=== PATIENT | male | born 1935 | race Two or more races ===

== ENCOUNTER 2021-06-23 00:54 | Inpatient (IN) | payer OTHER ==
[~2021-06-23] VITALS: Ht 172.7 cm; Wt 77.6 kg
[2021-06-23] VITALS: BP 141/63
--- NOTE | 2021-06-23 01:06 | NUR ---
BIBRA FROM HOME C/O MIDEPIGASTRIC PAIN S/P BM @ 630PM. +N/V -DIARRHEA TOOK OMEPRAZOLE TOBACCO WAREHOUSE AGENT. PT ALERT AND ORIENTED X3. BROUGHT IN BY STRETCHER ON MONITOR AND POX IN A GOWN.
--- NOTE | 2021-06-23 01:20 | NUR ---
LAB AT BEDSIDE
[2021-06-23] MEDS ORDERED: ONDANSETRON HCL/PF 4 MG/2 ML VIAL ONE ×2 (01:22→03:27)
[2021-06-23] MEDS ORDERED: MORPHINE SULFATE INJ 2 MG/ML DISP.SYRIN ONE ×2 (01:23→03:27)
[2021-06-23] MEDS ORDERED: ONDANSETRON HCL/PF 4 MG/2 ML VIAL IVP ONE (01:30)
[2021-06-23] MEDS ORDERED: IV NS 0.9% 500 ML BAG IV ONE (01:30)
[2021-06-23] MEDS ORDERED: MORPHINE SULFATE INJ 2 MG/ML DISP.SYRIN IV ONE ×2 (01:30→03:30)
[2021-06-23] MEDS ORDERED: LIDOCAINE 2% JEL UROJET 10 ML MM ONE (01:48)
--- NOTE | 2021-06-23 01:58 | NUR ---
URINE COLLECTED SENT TO LAB
[2021-06-23 02:00] LABS: HEMATOCRIT 39 % (39-51); HEMOGLOBIN 13.6 g/dL (13.5-17.5); LYMPHOCYTES % (AUTO) 14.9 % (20.0-44.0); MEAN CORPUSCULAR HGB CONC 35 g/dl (31.0-36.0); MEAN CORPUSCULAR VOLUME 87 fL (80-96); NEUTROPHILS % (AUTO) 79.1 % (43.0-81.0); PLATELET COUNT (AUTO) 244 K/uL (150-450); RED BLOOD CELL COUNT(AUTO) 4.49 MIL/uL (4.5-6.0)
[2021-06-23 02:01] LABS: BASOPHILS % (AUTO) 0.3 % (0.0-2.0); EOSINOPHILS % (AUTO) 0.3 % (0.0-6.0); LYMPHOCYTES # (AUTO) 2.1 K/uL (0.8-4.8); MONOCYTES # (AUTO) 0.8 K/uL (0.1-1.30); MONOCYTES % (AUTO) 5.4 % (2.0-12.0)
[2021-06-23 02:11] LABS: CALCIUM, SERUM 9.2 mg/dL (8.5-10.1); CARBON DIOXIDE 26 mmol/L (21-32); CHLORIDE 93 mmol/L (98-107); CREATININE 1.6 mg/dL (0.6-1.3); GLUCOSE 176 mg/dL (74-106); POTASSIUM 4.4 mmol/L (3.5-5.1); SODIUM SERUM 129 mmol/L (136-145); UREA NITROGEN, BLOOD 27 mg/dL (7-18)
--- NOTE | 2021-06-23 02:18 | NUR ---
PT RETURNED TO ER BED [address]
[2021-06-23 02:19] LABS: ALANINE AMINOTRANSFERASE 17 U/L (12-78); ALBUMIN 3.3 g/dL (3.4-5.0); ALKALINE PHOSPHATASE 101 U/L (46-116); ASPARTATE AMINOTRANSFERASE 14 U/L (15-37); BILIRUBIN,DIRECT 0.2 mg/dL (0.0-0.2); BILIRUBIN,TOTAL 0.4 mg/dL (0.2-1.0); LIPASE 110 U/L (73-393); TOTAL PROTEIN, SERUM 7.1 g/dL (6.4-8.2)
--- NOTE | 2021-06-23 02:19 | NUR ---
US TECH AT PT'S BEDSIDE
[2021-06-23 02:48] LABS: BILIRUBIN,URINE NEGATIVE (NEGATIVE); COLOR,URINE YELLOW (YELLOW); LEUKOCYTE ESTERASE ,URINE NEGATIVE (NEGATIVE); NITRITE, URINE NEGATIVE (NEGATIVE); PROTEIN,URINE NEGATIVE (NEGATIVE); UGLUCOSE NEGATIVE (NEGATIVE); UROBILINOGEN,URINE 0.2 EU/dL (0.2)
--- NOTE | 2021-06-23 03:14 | NUR ---
COVID ANTIGEN SWAB COLLECTED AND GIVEN TO LAB
[2021-06-23] MEDS ORDERED: ONDANSETRON HCL/PF 4 MG/2 ML VIAL IV ONE (03:30)
[2021-06-23] MEDS ORDERED: ASPIRIN 325 MG TABLET PO ONE (03:30)
[2021-06-23] MEDS ORDERED: ASPIRIN 325 MG TABLET ONE (03:40)
--- NOTE | 2021-06-23 03:55 | NUR ---
UPDATED DAUGHTER ABOUT FATHERS CONDITION
[2021-06-23] MEDS ORDERED: MAG HYDROX/AL HYDROX/SIMETH 30 ML UDC PO PRN (04:00)
[2021-06-23] MEDS ORDERED: Z GUARD REMEDY 4 OZ OINT TP PRN (04:00)
[2021-06-23] MEDS ORDERED: ACETAMINOPHEN 325 MG TABLET PO PRN (04:00)
[2021-06-23] MEDS ORDERED: ZOLPIDEM TARTRATE 5 MG TABLET PO PRN (04:00)
[2021-06-23] MEDS ORDERED: MAGNESIUM HYDROXIDE 30 ML UDC PO PRN (04:00)
--- NOTE | 2021-06-23 04:48 | NUR ---
Gaudencio da silva in [facility] - 06/23/21 at 0448 by DELLA TELE [phone]
--- NOTE | 2021-06-23 04:48 | NUR ---
TELE 324-2
--- NOTE | 2021-06-23 05:21 | NUR ---
REPORT GIVEN TO MEMO BORRERO FOR SILVANA
[2021-06-23] MEDS ORDERED: PIPERACILLIN /TAZOBACTAM 3.375 G in IV D5W 50 ML IV ONE (05:30)
--- NOTE | 2021-06-23 05:40 | NUR ---
Gaudencio da silva in ED - 06/23/21 at 0544 by NELLI PT TRANSFERRING TO 3W VIA ACLS PROTOCOL. VSS. ALL BELONGINGS WITH PT.
--- NOTE | 2021-06-23 06:13 | NUR ---
PT TRANSFERRING TO 3W VIA ACLS PROTOCOL. VSS.
--- NOTE | 2021-06-23 06:20 | NUR ---
RN NOTE PT ADMITTED TO ROOM 324-2. VSS. WILL ENDORSE TO ONCOMING NURSE FOR SILVANA.
--- NOTE | 2021-06-23 07:25 | NUR ---
RN NOTES PATIENT IS RESTING IN BED, NOT IN ACUTE DISTRESS. ON ROOM AIR, HX OF RIGHT KNEE SURGERY INVOLVING TENDONS PER PATIENT, UNABLE TO AMBULATE. URINAL AT BEDSIDE, ABLE TO USE. SAFETY MEASURES IN PLACE. WILL CONTINUE TO MONITOR.
[2021-06-23] MEDS ORDERED: AMLO-358 PO (07:50)
[2021-06-23] MEDS ORDERED: BISO5TAB20 PO (07:50)
[2021-06-23] MEDS ORDERED: PROP150T2 PO (07:50)
[2021-06-23] MEDS ORDERED: IV NS 0.9% 1,000 ML IV PRN (08:00)
[2021-06-23 08:56] LABS: THYROID STIMULATING HORMONE 1.144 uIU/mL (0.358-3.74)
[2021-06-23] MEDS: ASPIRIN 81 MG TAB.CHEW PO SCH (09:00)
[2021-06-23] MEDS: ATORVASTATIN 10 MG TABLET PO SCH (09:00)
[2021-06-23] MEDS: MORPHINE SULFATE INJ 2 MG/ML DISP.SYRIN IV PRN ×2 (09:07→12:54)
[2021-06-23] MEDS: PIPERACILLIN /TAZOBACTAM 3.375 G in IV D5W 100 ML IV SCH ×2 (09:08→18:05)
[2021-06-23] MEDS: ENOXAPARIN SODIUM 40 MG/0.4 ML DISP.SYRIN SQ SCH (09:28)
--- NOTE | 2021-06-23 10:55 | NUR ---
RN NOTES GIDEON PHANR ([phone] OR [phone]), AT BEDSIDE TO SEE THE PATIENT. PER DTR, OKAY TO GIVE INFO TO HER VINEET RIVERA WELL. INFORMED ABOUT PATIENT'S CONDITION/PROGRESS AND PLAN OF CARE FOR PATIENT.
--- NOTE | 2021-06-23 11:14 | NUR ---
RN NOTES DR. ORLANDO AT BEDSIDE TO SEE THE PATIENT.
[2021-06-23] MEDS: METOPROLOL TARTRATE 50 MG TABLET PO SCH ×3 (12:00→23:50)
[2021-06-23] MEDS ORDERED: PIPERACILLIN /TAZOBACTAM 3.375 G in IV D5W 50 ML IV SCH (12:00)
--- NOTE | 2021-06-23 15:00 | NUR ---
RN NOTES INFORMED DR. ORLANDO IF BREAKTHROUGH PAIN ANALGESIA CAN BE GIVEN TO PATIENT. PER DR. ORLANDO, DR. ARAUJO NEEDS TO SEE PATIENT FIRST AND MAKE A DECISION ON THAT.
[2021-06-23] MEDS: IV NS 0.9% 1,000 ML IV PRN (16:39)
--- NOTE | 2021-06-23 17:03 | NUR ---
RN NOTES URINE SPECIMEN COLLECTED AND PLACED IN THE REFRIGERATOR.
--- NOTE | 2021-06-23 18:05 | NUR ---
RN NOTES PATIENT NO COMPLAINT OF NAUSEA/VOMITING AT THIS TIME; ICE CHIPS OFFERED TO PATIENT BUT PATIENT VERBALIZED THAT HE'S OKAY AT THE MOMENT.
--- NOTE | 2021-06-23 19:20 | NUR ---
RN NOTES ADMITTED THIS PATIENT FROM ER W/ ADMITTING DX OF CHOLELITHIASIS, SECONDARY IMPRESSION OF NSTEMI. PATIENT IS A/O X4, MALTESE-SPEAKING, UNDERSTANDS HEBREW, ABLE TO MAKE NEEDS KNOWN. IV LINE ON LAC #18 INTACT AND PATENT, CURRENTLY ATTACHED TO NS AT 75ML/HR AND IV ATB. PATIENT UNABLE TO AMBULATE SECONDARY TO RECENT RIGHT KNEE SURGERY. BREATHING EVEN AND UNLABORED, TOLERATING ROOM AIR. CURRENTLY RESTING IN BED. SAFETY MEASURES MAINTAINED. ENDORSED TO EXECUTIVE CHAIRMAN OF THE BOARD RN FOR SILVANA.
--- NOTE | 2021-06-23 19:25 | NUR ---
DRAWER IN NOTES RECEIVED PN BED A/O X4,SPEAK JAMAICAN,UNDERSTAND GREEK,BREATHING REGULAR,NOT IN ANY FORM OF DISTRESS,O2 SAT 95% ON ROOM AIR.NPO EXCEPT ICE CHIPS,FOR GI CONSULT DUE TO CHOLELITHIASIS.PRESENT IVF NS AT 75ML./HR RATE INFUSING WELL ON LEFT AC SALINE LOCK VIA IV PUMP.CALL LIGHT IN REACH,NEEDS ANTICIPATED.
[2021-06-23 20:00] VITALS: BP 130/57
[2021-06-24] VITALS: BP 141/63
[2021-06-24 01:09] LABS: CREATININE, URINE 112.9 MG/DL (30.0-125.0)
[2021-06-24] MEDS: PIPERACILLIN /TAZOBACTAM 3.375 G in IV D5W 100 ML IV SCH ×3 (01:25→18:04)
--- NOTE | 2021-06-24 02:00 | NUR ---
E COMMERCE RETAILER NOTES DUE IV ZOSYN 3.375GM HUNG,INFUSING AT 25ML/HR RATE VIA IV PUMP ON LEFT AC SALINE LOCK.
[2021-06-24 04:00] VITALS: BP 137/56
[2021-06-24] MEDS: METOPROLOL TARTRATE 50 MG TABLET PO SCH ×4 (05:45→18:23)
[2021-06-24] MEDS: MORPHINE SULFATE INJ 2 MG/ML DISP.SYRIN IV PRN ×2 (05:57→10:31)
--- NOTE | 2021-06-24 05:57 | NUR ---
ALUMINUM CONTAINER TESTER NOTES PAIN MANAGEMENT C/O ABDOMINAL PAIN 8/10 ON PAIN SCALE,MORPHINE 1MG IV GIVEN ORDERED.
[2021-06-24 06:45] LABS: BASOPHILS % (AUTO) 0.1 % (0.0-2.0); EOSINOPHILS % (AUTO) 0.1 % (0.0-6.0); HEMATOCRIT 39 % (39-51); HEMOGLOBIN 13.5 g/dL (13.5-17.5); LYMPHOCYTES # (AUTO) 2.4 K/uL (0.8-4.8); LYMPHOCYTES % (AUTO) 8.6 % (20.0-44.0); MEAN CORPUSCULAR HGB CONC 35 g/dl (31.0-36.0); MEAN CORPUSCULAR VOLUME 88 fL (80-96); MONOCYTES # (AUTO) 1.3 K/uL (0.1-1.30); MONOCYTES % (AUTO) 4.6 % (2.0-12.0); NEUTROPHILS # (AUTO) 24.3 K/uL (1.8-8.9); NEUTROPHILS % (AUTO) 86.6 % (43.0-81.0); PLATELET COUNT (AUTO) 231 K/uL (150-450); RED BLOOD CELL COUNT(AUTO) 4.45 MIL/uL (4.5-6.0); WHITE BLOOD COUNT (AUTO) 28.1 K/uL (4.3-11.0)
--- NOTE | 2021-06-24 06:59 | NUR ---
INFORMATION RECEPTIONIST NOTES ON BED ASLEEP WITH PAIN MANAGEMENT.IVF INFUSING WELL ON LEFT AC,,KEPT NPO FOR GI CONSULT WITH DR ARAUJO.ECHO SHOWS 25-30%EF.DENIES CHEST PAIN,IN NO ACUTE DISTRESS,CALL LIGHT IN REACH,NEEDS ATTENDED.
--- NOTE | 2021-06-24 07:23 | NUR ---
PUPIL PERSONNEL SERVICES DIRECTOR OPENING NOTE PT IN BED ASLEEP, EASY TO AROUSE. A/O X4, TRISTANIAN AND LAO SPEAKING. ABLE TO MAKE NEEDS KNOWN. NO S/SX OF ACUTE DISTRESS NOTED. NO SOB. BREATHING IS EVEN AND UNLABORED; TOLERATING WELL ON ROOM AIR. PT WITH EXTERNAL AIRBRUSH ARTIST TECHNICAL WITH READING OF SINUS RHYTHM HR 86. IV ACCESS LAC#18 PATENT AND INTACT WITH NS RUNNING @100MLS/HR. SAFETY MEASURES IN PLACE WITH BED LOCKED AND AT LOW POSITION WITH SIDE RAILS UP X 2. CALL LIGHT IS WITHIN EASY REACH. WILL CONTINUE TO MONITOR PATIENT THROUGHOUT SHIFT.
[2021-06-24 08:04] VITALS: BP 138/55
[2021-06-24] MEDS: ENOXAPARIN SODIUM 40 MG/0.4 ML DISP.SYRIN SQ SCH (08:33)
[2021-06-24] MEDS: ATORVASTATIN 10 MG TABLET PO SCH (08:33)
[2021-06-24] MEDS: ASPIRIN 81 MG TAB.CHEW PO SCH (08:33)
[2021-06-24 08:41] LABS: ALANINE AMINOTRANSFERASE 16 U/L (12-78); ALBUMIN 2.8 g/dL (3.4-5.0); ALKALINE PHOSPHATASE 86 U/L (46-116); ASPARTATE AMINOTRANSFERASE 14 U/L (15-37); BILIRUBIN,TOTAL 1.1 mg/dL (0.2-1.0); CARBON DIOXIDE 27 mmol/L (21-32); CHLORIDE 93 mmol/L (98-107); CREATININE 1.5 mg/dL (0.6-1.3); GLUCOSE 104 mg/dL (74-106); LIPASE 26 U/L (73-393); MAGNESIUM 1.9 mg/dL (1.8-2.4); PHOSPHORUS 4.7 mg/dL (2.5-4.9); SODIUM SERUM 129 mmol/L (136-145); TOTAL PROTEIN, SERUM 6.9 g/dL (6.4-8.2); UREA NITROGEN, BLOOD 20 mg/dL (7-18)
[2021-06-24 12:26] VITALS: BP 150/46
[2021-06-24] MEDS ORDERED: MORPHINE SULFATE INJ 2 MG/ML DISP.SYRIN IV PRN (14:38)
--- NOTE | 2021-06-24 15:00 | NUR ---
RN NOTE-PAIN PT C/O ABDOMINAL PAIN 01/15. ADMINISTERED MORPHINE 2MG IV PRN FOR PAIN. WILL REASSESS AFTER 30 MINUTES.
--- NOTE | 2021-06-24 15:27 | NUR ---
RN NOTE PT WAS PICKED UP AT THIS TIME BY MRI.
[2021-06-24] MEDS ORDERED: ANESTHESIA TRAY IN PYXIS 1 EA TRAY MC ONE (16:47)
--- NOTE | 2021-06-24 18:49 | NUR ---
PAINT DIPPER CLOSING NOTE NO SIGNIFICANT CHANGE IN CONDITION DURING SHIFT. ABLE TO MAKE NEEDS KNOWN. NO S/SX OF ACUTE DISTRESS NOTED. NO SOB. BREATHING IS EVEN AND UNLABORED; TOLERATING WELL ON ROOM AIR. PT WITH EXTERNAL TRAFFIC CONTROL FLAGGER WITH READING OF SINUS RHYTHM HR 80S. PT IS SCHEDULED FOR PROCEDURE TMRW, WILL KEEP NPO AFTER MIDNIGHT. IV ACCESS LAC#18 PATENT AND INTACT WITH NS RUNNING @100MLS/HR. SAFETY MEASURES IN PLACE WITH BED LOCKED AND AT LOW POSITION WITH SIDE RAILS UP X 2. CALL LIGHT IS WITHIN EASY REACH. DAUGHTER IS AT BEDSIDE. WILL ENDORSE CONTINUITY OF CARE TO ONCOMING SHIFT.
[2021-06-24] MEDS: IV NS 0.9% 1,000 ML IV PRN (19:23)
--- NOTE | 2021-06-24 19:45 | NUR ---
WALL ATTENDANT NOTES LAYING COMFORTABLY ON BED,BREATHING EASY,NO SOB,FAMILY MEMBER AT BEDSIDE,PRESENT IVF INFUSING WELL VIA IV PUMP.INSTRUCTED NPO POST MIDNIGHT,GOING FOR LAP.NICKY POSSIBLE OPEN TOMORROW UNDER DR REDDY.CONSENT ON CHART.MONITOR FOR PAIN.FALL PRECAUTION OBSERVED,BED ALARM TRIGGERED,CALL LIGHT IN REACH,NEEDS ANTICIPATED.
[2021-06-24 20:00] VITALS: BP 122/58
[2021-06-25] VITALS (9 sets, daily range): BP systolic 96–137; BP diastolic 49–100
--- NOTE | 2021-06-25 | NUR ---
SALES REPRESENTATIVE UNIFORMS NOTES BP 132/100,PULSE-81,LOPRESSOR 50MG PO GIVEN SCHEDULED WITH SIPS OF WATER.
[2021-06-25] MEDS: METOPROLOL TARTRATE 50 MG TABLET PO SCH ×5 (00:06→23:11)
[2021-06-25] MEDS: PIPERACILLIN /TAZOBACTAM 3.375 G in IV D5W 100 ML IV SCH ×3 (02:17→17:09)
--- NOTE | 2021-06-25 06:00 | NUR ---
STOCKKEEPER NOTES LATEST BLOOD PRESSURE 137/60,DUE LOPRESSOR 50MG GIVEN WITH SIPS OF WATER.
--- NOTE | 2021-06-25 06:27 | NUR ---
JUNIOR UNDERWRITER NOTES LAYING COMFORTABLY ON BED,DENIES ABDOMINAL PAIN,OFFERED PAIN MEDICINE BUT REFUSED,KEPT NPO SINCE MIDNIGHT FOR LAPAROSCOPIC CHOLECYSTECTOMY,POSSIBLE OPEN AT [address] REDDY,WITH CONSENT ON CHART SIGNED BY PATIENT.IVF INFUSING WELL ON LEFT AC SALINE LOCK.IN NO ACUTE DISTRESS,CALL LIGHT IN REACH,NEEDS ATTENDED.WILL ENDORSE TO DAY NURSE FOR SILVANA.
[2021-06-25 06:52] LABS: BASOPHILS % (AUTO) 0.2 % (0.0-2.0); EOSINOPHILS % (AUTO) 0.5 % (0.0-6.0); HEMATOCRIT 36 % (39-51); HEMOGLOBIN 12.7 g/dL (13.5-17.5); LYMPHOCYTES # (AUTO) 2.3 K/uL (0.8-4.8); LYMPHOCYTES % (AUTO) 11.1 % (20.0-44.0); MEAN CORPUSCULAR HGB CONC 35 g/dl (31.0-36.0); MEAN CORPUSCULAR VOLUME 87 fL (80-96); MONOCYTES # (AUTO) 0.9 K/uL (0.1-1.30); MONOCYTES % (AUTO) 4.4 % (2.0-12.0); NEUTROPHILS # (AUTO) 17.4 K/uL (1.8-8.9); NEUTROPHILS % (AUTO) 83.8 % (43.0-81.0); PLATELET COUNT (AUTO) 198 K/uL (150-450); RED BLOOD CELL COUNT(AUTO) 4.16 MIL/uL (4.5-6.0); WHITE BLOOD COUNT (AUTO) 20.8 K/uL (4.3-11.0)
[2021-06-25 06:55] LABS: ALANINE AMINOTRANSFERASE 15 U/L (12-78); ALBUMIN 2.4 g/dL (3.4-5.0); ALKALINE PHOSPHATASE 82 U/L (46-116); ASPARTATE AMINOTRANSFERASE 14 U/L (15-37); BILIRUBIN,TOTAL 0.9 mg/dL (0.2-1.0); CARBON DIOXIDE 25 mmol/L (21-32); CHLORIDE 95 mmol/L (98-107); CREATININE 1.4 mg/dL (0.6-1.3); GLUCOSE 115 mg/dL (74-106); MAGNESIUM 1.9 mg/dL (1.8-2.4); PHOSPHORUS 3.2 mg/dL (2.5-4.9); POTASSIUM 3.8 mmol/L (3.5-5.1); SODIUM SERUM 128 mmol/L (136-145); TOTAL PROTEIN, SERUM 6.5 g/dL (6.4-8.2); UREA NITROGEN, BLOOD 22 mg/dL (7-18)
--- NOTE | 2021-06-25 07:20 | NUR ---
PSYCHOLOGIST PERSONNEL OPENING NOTES RECEIVED PATIENT SLEEPING IN BED. EASILY AROUSED. A/O X4, VERBALLY RESPONSIVE. NO SIGNS OF ACUTE DISTRESS NOTED. ON ROOM AIR, TOLERATING WELL, NO SOB NOTED, BREATHING EVEN AND UNLABORED. ON AUXILIARY POWER EQUIPMENT OPERATOR SHOWING SR @ 78. WITH IV ACCESS ON LEFT AC #18G, NS RUNNING @ 75 ML/HR. NO C/O PAIN AT THIS TIME. REMAINS ON NPO FOR SURGERY THIS NOONTIME. SAFETY MEASURES INPLACE, BED IN LOCKED LOWEST POSITION, SR UP X2, CALL LIGHT PLACED WITHIN EASY REACH. WILL CONTINUE TO MONITOR.
[2021-06-25] MEDS: ASPIRIN 81 MG TAB.CHEW PO SCH (09:00)
[2021-06-25] MEDS: ATORVASTATIN 10 MG TABLET PO SCH (09:00)
[2021-06-25] MEDS: ENOXAPARIN SODIUM 40 MG/0.4 ML DISP.SYRIN SQ SCH (09:00)
--- NOTE | 2021-06-25 09:09 | NUR ---
RN NOTES ALL MEDICATIONS HELD ON NPO STATUS AND PATIENT HAS SCHEDULED SURGERY TODAY.
[2021-06-25] MEDS ORDERED: BUPIVACAINE 0.5 % PF 150 MG/30 ML VIAL ONE (10:31)
[2021-06-25] MEDS ORDERED: BUPIVACAINE 0.25% 75 MG/30 ML VIAL ONE (10:32)
--- NOTE | 2021-06-25 11:25 | NUR ---
RN NOTES PATIENT PICKED UP VIA BED FOR SURGERY.
[2021-06-25] MEDS ORDERED: FENTANYL PF 250MCG/5ML AMPUL ONE (11:38)
[2021-06-25] MEDS ORDERED: HYDROMORPHONE INJ 2 MG/ML DISP.SYRIN ONE (11:38)
[2021-06-25] MEDS ORDERED: FAMOTIDINE/PF INJ 20 MG/2 ML VIAL IV ONE (11:39)
[2021-06-25] MEDS ORDERED: MIDAZOLAM HCL 2 MG/2ML VIAL ONE (11:39)
[2021-06-25] MEDS ORDERED: ROCURONIUM BROMIDE 50 MG/5 ML ONE (11:40)
--- NOTE | 2021-06-25 11:54 | NUR ---
RN NOTES LOPRESSOR NOT ADMINISTERED, PATIENT AT SURGERY.
[2021-06-25] MEDS ORDERED: LABETALOL HCL IV 100MG VIAL ONE (13:29)
[2021-06-25] MEDS ORDERED: hydrALAZINE HCL IV 20 MG VIAL ONE (13:29)
[2021-06-25] MEDS ORDERED: HYDROCODONE/APAP 5/325MG TABLET PO PRN (14:00)
--- NOTE | 2021-06-25 14:36 | NUR ---
RN NOTES PATIENT BACK FROM RECOVERY ROOM, TRANSPORTED VIA BED ACCOMPANIED BY ADAIR LIU. S/P LAPAROSCOPIC CHOLECYSTECTOMY WITH PLACEMENT OF DRAIN. NOTED WITH ABDOMINAL DRESSING INTACT, WITH CHRISTIAN DRAIN, NOTED WITH SANGUINEOUS DRAINAGE. NOTED WITH SOME CONFUSION, REMOVING O2 CANNULA, REORIENTED NEEDED. VITAL SIGNS FOLLOWS: 98.1, 96/52, 106, 20, 92 % SPO2 ON O2 @4 LPM VIA N/C. WILL CONTINUE TO MONITOR.
--- NOTE | 2021-06-25 18:43 | NUR ---
CONTENT COORDINATOR CLOSING NOTES PATIENT IN BED, AWAKE, ALERT, ORIENTED X4. NO SIGNS OF ACUTE DISTRESS NOTED. ON ROOM AIR SATTING @ 92%, NO C/O SOB. S/P LAP NICKY WITH CHRISTIAN DRAIN NOTED WITH SANGUINEOUS DRAIN. IV ACCESS ON LAC INTACT AND PATENT, IV ZOSYN STILL ONGOING AT THIS TIME. MEDICATED WITH NORCO 5/325 @ 1828 FOR PAIN. ALL NEEDS ATTENDED TO. SAFETY MEASURES MAINTAINED. BED IN LOWEST LOCKED POSITION, SR UP X2, CALL LIGHT PLACED WITHIN EASY REACH. WILL ENDORSE TO NEXT SHIFT.
--- NOTE | 2021-06-25 19:35 | NUR ---
DEAN OF EDUCATION OPENING RECEIVED PATIENT IN BED WITH DAUGHTER IN BED SIDE. A/OX4. NO S/S OF APPARENT DISTRESS ON ROOM AIR. DENIES PAIN AT THIS TIME. RIGHT LEG NOTED TO HAVE A BRACE-- PER DAUGHTER HE JUST HAD SX FOR IT THIS MAY. CHRISTIAN DRAIN NOTED TO HAVE SANGUINOUS DRAINAGE. TELE MONITOR READING SR 87. SAFETY IN PLACE. WILL CONTINUE WITH PLAN OF CARE FOR PATIENT.
[2021-06-25] MEDS: MORPHINE SULFATE INJ 2 MG/ML DISP.SYRIN IV PRN (21:31)
[2021-06-26] VITALS: BP 108/45
[2021-06-26] MEDS: PIPERACILLIN /TAZOBACTAM 3.375 G in IV D5W 100 ML IV SCH ×3 (01:24→17:14)
--- NOTE | 2021-06-26 02:00 | NUR ---
PAINT STOCKMAN NOTE PATIENT C/O NOT PEEING SINCE SURGERY YESTERDAY. ASSESSED PATIENT'S ABDOMEN AND IT WAS HARD AND DISTENDED ON TOP BUT SUPRAPUBIC NOT REALLY HARD NOR DISTENDED. DID DO BLADDER SCAN AND THERE WAS 0 ML FOUND, EVEN VERIFIED WITH ANOTHER RN AND MARCIA ALSO DID NOT SEE ANY RETENTION. PATIENT DID HAVE LAPAROSCOPY HENCE SUSPECTED THE HARDNESS FROM GAS. PATIENT DID STATE HE HAS HAD NOT PASSED GAS WELL. MENTIONED TO CHARGE NURSE. WILL TRY TO STAND PATIENT UP FIRST BEFORE ANY MORE INTERVENTIONS AND REASSESS AGAIN.
--- NOTE | 2021-06-26 02:00 | NUR ---
TANK CLEANER NOTE PATIENT C/O NAUSEA. GIVEN ZOFRAN 4MG. WILL REASSESS.
[2021-06-26] MEDS: ONDANSETRON HCL/PF 4 MG/2 ML VIAL IVP PRN (02:01)
[2021-06-26 04:00] VITALS: BP 111/63
--- NOTE | 2021-06-26 04:43 | NUR ---
LICENSE EXAMINER NOTE MESSAGED BIOCHEMICAL DEVELOPMENT ENGINEER MIGUEL EVANS, JOSE EDUARDO FOR IN AND OUT CATH. OK TO GIVE PER HAND ROLLER ENGRAVER. GOT 300 ML OUT WITH DARK LEESA YELLOW URINE. PER PATIENT HE DOES NOT DRINK A LOT OF WATER. PATIENT EDUCATION DONE. PATIENT ACKNOWLEDGES.
[2021-06-26] MEDS: METOPROLOL TARTRATE 50 MG TABLET PO SCH ×3 (06:19→17:21)
[2021-06-26 06:39] LABS: BASOPHILS % (AUTO) 0.1 % (0.0-2.0); EOSINOPHILS % (AUTO) 1.2 % (0.0-6.0); HEMATOCRIT 31 % (39-51); HEMOGLOBIN 10.5 g/dL (13.5-17.5); LYMPHOCYTES # (AUTO) 2.1 K/uL (0.8-4.8); LYMPHOCYTES % (AUTO) 13.2 % (20.0-44.0); MEAN CORPUSCULAR HGB CONC 34 g/dl (31.0-36.0); MEAN CORPUSCULAR VOLUME 88 fL (80-96); MONOCYTES # (AUTO) 1.1 K/uL (0.1-1.30); MONOCYTES % (AUTO) 7.3 % (2.0-12.0); NEUTROPHILS # (AUTO) 12.2 K/uL (1.8-8.9); NEUTROPHILS % (AUTO) 78.2 % (43.0-81.0); PLATELET COUNT (AUTO) 206 K/uL (150-450); RED BLOOD CELL COUNT(AUTO) 3.48 MIL/uL (4.5-6.0); WHITE BLOOD COUNT (AUTO) 15.6 K/uL (4.3-11.0)
[2021-06-26 06:56] LABS: ALANINE AMINOTRANSFERASE 38 U/L (12-78); ALBUMIN 2.1 g/dL (3.4-5.0); ALKALINE PHOSPHATASE 87 U/L (46-116); ASPARTATE AMINOTRANSFERASE 46 U/L (15-37); BILIRUBIN,TOTAL 0.6 mg/dL (0.2-1.0); CALCIUM, SERUM 7.9 mg/dL (8.5-10.1); CARBON DIOXIDE 25 mmol/L (21-32); CHLORIDE 96 mmol/L (98-107); CREATININE 1.6 mg/dL (0.6-1.3); GLUCOSE 124 mg/dL (74-106); MAGNESIUM 2.1 mg/dL (1.8-2.4); PHOSPHORUS 3.3 mg/dL (2.5-4.9); POTASSIUM 3.9 mmol/L (3.5-5.1); SODIUM SERUM 127 mmol/L (136-145); TOTAL PROTEIN, SERUM 5.7 g/dL (6.4-8.2); UREA NITROGEN, BLOOD 33 mg/dL (7-18)
--- NOTE | 2021-06-26 06:57 | NUR ---
PREFABRICATOR CLOSING NOTE PATIENT IN BED WITH EYES CLOSED, EASY TO AROUSE. A/OX4. NO S/S OF APPARENT DISTRESS. DENIES PAIN AT THE MOMENT. TELE MONITOR READING SR 86. CHRISTIAN DRAIN DRAINING SANGUINOUS DRAINAGE OUTPUT OF 60 ML. IV NS RUNNING @125ML/HR. ALL SCHEDULED MEDICATION ADMINISTERED. ALL NEEDS ATTENDED. WILL ENDORSED TO MORNING SHIFT RN FOR CONTINUITY OF CARE.
[2021-06-26 08:00] VITALS: BP 125/55
--- NOTE | 2021-06-26 08:08 | NUR ---
RN Opening Note Patient received in bed AO x 4 Luxembourgish speaking, able to responds all stimuli. Respiratory even and unlabored on room air. No distress observed. Skin is warm to touch, keep clean/dry, intact IV site. Kept elevated HOB for ensure airway/aspiration precaution and remain lower position of the bed for safety. call light within reach, will continue to monitor.
[2021-06-26] MEDS: ASPIRIN 81 MG TAB.CHEW PO SCH (08:14)
[2021-06-26] MEDS: ATORVASTATIN 10 MG TABLET PO SCH (08:14)
[2021-06-26] MEDS: ENOXAPARIN SODIUM 40 MG/0.4 ML DISP.SYRIN SQ SCH (08:15)
[2021-06-26] MEDS: LOSARTAN POTASSIUM 50 MG TABLET PO SCH (09:05)
[2021-06-26] MEDS: MORPHINE SULFATE INJ 2 MG/ML DISP.SYRIN IV PRN (11:28)
[2021-06-26 12:00] VITALS: BP 124/55
[2021-06-26] MEDS: IV NS 0.9% 1,000 ML IV PRN (15:45)
--- NOTE | 2021-06-26 15:54 | NUR ---
Patient having difficult to urinate since been after surgery and no urinate in this shift. made aware, ordered I/O cath x once. 300 cc urine out put.
[2021-06-26 16:00] VITALS: BP 127/56
--- NOTE | 2021-06-26 18:31 | NUR ---
RN Closing Note Patient is resting in bed, no distress observed. Respiratory even and unlabored on room air. Skin is warm to touch, keep clean/dry. Kept elevated HOB for ensure airway and aspiration precaution, Also lower position of the bed for safety. Remains CHRISTIAN tube and 20 cc characteristic of serosanguineous output. Call light within reach, all needs met. will endorse warehouse supervisor 3rd shift.
--- NOTE | 2021-06-26 19:38 | NUR ---
RN OPENING NOTES RECEIVED PT IN BED, ASLEEP, AWAKENS TO VERBAL STIMULI, DAUGHTER AT BEDSIDE. AOx4, ENGLISH SPEAKING AND ABLE TO MAKE NEEDS KNOWN. ON RA AND TOLERATING WELL. NO SOB NOTED. NO S/SX OF RESPIRATORY DISTRESS NOTED. IV ACCESS IN LAC #18 RUNNING NS @ 125 ML/HR. TELE MONITOR DETECTS SINUS RHYTHM WITH 2ND DEGREE AV BLOCK AND RATE OF 70. SAFETY PRECAUTIONS IN PLACE: BED IN LOWEST, LOCKED POSITION, SIDERAILS UPx2, AND BRAKES ON. TABLE AND CALL LIGHT WITHIN REACH. WILL CONTINUE TO MONITOR.
[2021-06-26 20:00] VITALS: BP 134/64
[2021-06-27] VITALS: BP 120/59
[2021-06-27] MEDS: METOPROLOL TARTRATE 50 MG TABLET PO SCH ×4 (00:12→16:48)
[2021-06-27] MEDS: ONDANSETRON HCL/PF 4 MG/2 ML VIAL IVP PRN ×2 (01:15→16:47)
[2021-06-27] MEDS: PIPERACILLIN /TAZOBACTAM 3.375 G in IV D5W 100 ML IV SCH ×3 (01:58→17:28)
[2021-06-27 04:00] VITALS: BP 141/62
--- NOTE | 2021-06-27 06:45 | NUR ---
RN CLOSING NOTES PT IN BED, ASLEEP, AWAKENS TO VERBAL STIMULI. AOx4, PERSIAN SPEAKING AND ABLE TO MAKE NEEDS KNOWN. ON RA AND TOLERATING WELL. NO SOB NOTED. NO S/SX OF RESPIRATORY DISTRESS NOTED. IV ACCESS IN R WRIST #22 G RUNNING NS @ 125 ML/HR. TELE MONITOR DETECTS SINUS RHYTHM WITH 2ND DEGREE AV BLOCK AND RATE OF 70S. ALL NEEDS MET. PT KEPT CLEAN AND DRY. SAFETY PRECAUTIONS IN PLACE: BED IN LOWEST, LOCKED POSITION, SIDERAILS UPx2, AND BRAKES ON. TABLE AND CALL LIGHT WITHIN REACH. WILL ENDORSE TO ONCOMING SHIFT FOR SILVANA.
[2021-06-27 07:28] LABS: BASOPHILS % (AUTO) 0.3 % (0.0-2.0); EOSINOPHILS % (AUTO) 2.5 % (0.0-6.0); HEMATOCRIT 33 % (39-51); LYMPHOCYTES # (AUTO) 1.8 K/uL (0.8-4.8); LYMPHOCYTES % (AUTO) 17.2 % (20.0-44.0); MEAN CORPUSCULAR HGB CONC 34 g/dl (31.0-36.0); MEAN CORPUSCULAR VOLUME 87 fL (80-96); MONOCYTES # (AUTO) 0.8 K/uL (0.1-1.30); MONOCYTES % (AUTO) 7.3 % (2.0-12.0); NEUTROPHILS # (AUTO) 7.8 K/uL (1.8-8.9); NEUTROPHILS % (AUTO) 72.7 % (43.0-81.0); PLATELET COUNT (AUTO) 218 K/uL (150-450); RED BLOOD CELL COUNT(AUTO) 3.71 MIL/uL (4.5-6.0); WHITE BLOOD COUNT (AUTO) 10.8 K/uL (4.3-11.0)
--- NOTE | 2021-06-27 07:38 | NUR ---
DATA ENTRY TECHNICIAN OPENING NOTE PT IN BED ASLEEP, EASY TO AROUSE. A/OX 4 FAROESE SPEAKING. NO S/SX OF ACUTE DISTRESS NOTED. NO C/O PAIN. BREATHING IS EVEN AND UNLABORED. ON ROOM AIR, TOLERATING WELL. PT NOTED WITH EXTERNAL SODIUM CHLORITE OPERATOR-SR 70'S WITH 1ST DEGREE BLOCK AND BBBS. PT WITH CHRISTIAN DRAIN. IV ACCESS RWRIST#22 WITH NS RUNNING @125MLS/HR. PATENT AND INTACT, FLUSHES WELL. SAFETY MEASURES IN PLACE WITH BED LOCKED AND LOW POSITION WITH SIDE RAILS UP X 2. CALL LIGHT AND BEDSIDE TABLE WITHIN REACH. WILL CONTINUE TO MONITOR PATIENT THROUGHOUT SHIFT.
[2021-06-27 08:00] VITALS: BP 152/61
[2021-06-27 08:16] LABS: ALBUMIN 2.2 g/dL (3.4-5.0); BILIRUBIN,TOTAL 0.5 mg/dL (0.2-1.0); CALCIUM, SERUM 7.3 mg/dL (8.5-10.1); CREATININE 1.2 mg/dL (0.6-1.3); MAGNESIUM 2.1 mg/dL (1.8-2.4); PHOSPHORUS 1.9 mg/dL (2.5-4.9); POTASSIUM 3.8 mmol/L (3.5-5.1); TOTAL PROTEIN, SERUM 6.1 g/dL (6.4-8.2)
[2021-06-27] MEDS: LOSARTAN POTASSIUM 50 MG TABLET PO SCH (08:16)
[2021-06-27] MEDS: ASPIRIN 81 MG TAB.CHEW PO SCH (08:16)
[2021-06-27] MEDS: ATORVASTATIN 10 MG TABLET PO SCH (08:16)
[2021-06-27] MEDS: ENOXAPARIN SODIUM 40 MG/0.4 ML DISP.SYRIN SQ SCH (08:17)
[2021-06-27] MEDS ORDERED: NEUTRA PHOS 1 POWD.PACKET PO ONE (10:00)
[2021-06-27 12:00] VITALS: BP 148/59
--- NOTE | 2021-06-27 15:45 | NUR ---
RN NOTE PHYSICAL THERAPY UNAVAILABLE. KRISTAL ANTHONY AND I HELP PT SLOWLY OUT OF BED, SIT UP AND STAND FOR FEW MINUTES. PT WAS ABLE TO TOLERATE WITHOUT C/O DIZZINESS OR PAIN. PT WAS CAREFULLY PLACED BACK IN BED. PT IS RESTING COMFORTABLY.
[2021-06-27 16:00] VITALS: BP 127/55
--- NOTE | 2021-06-27 17:43 | NUR ---
RN NOTE INSERTED IV ACCESS LAC#18G . PT TOLERATED WELL. CONSENT SIGNED FOR CTCA TMRW.
--- NOTE | 2021-06-27 18:46 | NUR ---
CORPORATE LEGAL SECRETARY CLOSING NOTE PT IN BED AWAKE. DAUGHTER AT BEDSIDE. NO S/SX OF ACUTE DISTRESS NOTED. NO C/O PAIN. BREATHING IS EVEN AND UNLABORED. ON ROOM AIR, TOLERATING WELL. PT NOTED WITH EXTERNAL CHEMICAL WASTE MANAGEMENT TECHNICIAN-SR 78 WITH 1ST DEGREE BLOCK AND BBBS. IV ACCESS RWRIST#22 AND LAC#18 PATENT AND INTACT, FLUSHING WELL. SAFETY MEASURES IN PLACE WITH BED LOCKED AND LOW POSITION WITH SIDE RAILS UP X 2. CALL LIGHT AND BEDSIDE TABLE WITHIN REACH. WILL ENDORSE CONTINUITY OF CARE TO ONCOMING SHIFT.
--- NOTE | 2021-06-27 19:30 | NUR ---
RN OPENING NOTE PATIENT IN BED, AWAKE ABLE TO MAKE NEEDS KNOWN. A/O X 4, NEPALESE SPEAKING BUT UNDERSTANDS SOME VIETNAMESE. DAUGHTER AT BEDSIDE. PATIENT IS CURRENTLY ON RA, TOLERATING WELL WITH 96% 02 SATURATION. PATIENT DOES NOT COMPLAIN OF ANY PAIN AT THIS TIME. TELE MONITOR READS SR WITH 1ST DEGREE AV BLOCK AND BBB 75 BPM. PATIENT HAS A LAC 18G, WITH ON GOING IV ABX, INFUSING WELL. PATIENT HAS A KNEE BRACE/IMMOBILIZER ON R KNEE. SAFETY MEASURES IN PLACE: BED LOCKED AND IN LOWEST POSITION, CALL LIGHT WITHIN REACH, SIDE RAILS UP. WILL MONITOR PATIENT CLOSELY.
[2021-06-27 20:00] VITALS: BP 131/63
[2021-06-28] VITALS: BP 124/53
[2021-06-28] MEDS: PIPERACILLIN /TAZOBACTAM 3.375 G in IV D5W 100 ML IV SCH ×2 (02:07→09:58)
[2021-06-28 04:00] VITALS: BP 111/35
[2021-06-28 06:00] LABS: BASOPHILS % (AUTO) 0.4 % (0.0-2.0); HEMATOCRIT 29 % (39-51); LYMPHOCYTES # (AUTO) 2.3 K/uL (0.8-4.8); LYMPHOCYTES % (AUTO) 27.1 % (20.0-44.0); MEAN CORPUSCULAR HGB CONC 35 g/dl (31.0-36.0); MEAN CORPUSCULAR VOLUME 87 fL (80-96); MONOCYTES # (AUTO) 0.9 K/uL (0.1-1.30); MONOCYTES % (AUTO) 10.5 % (2.0-12.0); NEUTROPHILS # (AUTO) 4.9 K/uL (1.8-8.9); PLATELET COUNT (AUTO) 202 K/uL (150-450); WHITE BLOOD COUNT (AUTO) 8.5 K/uL (4.3-11.0)
--- NOTE | 2021-06-28 06:41 | NUR ---
RN CLOSING NOTE PATIENT IN BED, SLEEPING, EASILY AWAKENED. ABLE TO MAKE NEEDS KNOWN. A/O X 4. PATIENT IS CURRENTLY ON RA, TOLERATING WELL WITH 97% 02 SATURATION. PATIENT DOES NOT COMPLAIN OF ANY PAIN AT THIS TIME. OFFERED PATIENT MEDICATION FOR CONSTIPATION, BUT REFUSED MED. TELE MONITOR READS SR WITH 1ST DEGREE AV BLOCK AND BBB 73 BPM. PATIENT HAS A LAC 18G, SALINE LOCKED AT THIS TIME. PATIENT HAS A KNEE BRACE/IMMOBILIZER ON R KNEE. PATIENT HAS CTCA TODAY. SAFETY MEASURES IN PLACE: BED LOCKED AND IN LOWEST POSITION, CALL LIGHT WITHIN REACH, SIDE RAILS UP. ALL NEEDS MET AND ATTENDED. ALL ORDERS CARRIED OUT. WILL ENDORSE TO DAY SHIFT NURSE FOR SILVANA.
[2021-06-28 06:44] LABS: BILIRUBIN,TOTAL 0.4 mg/dL (0.2-1.0); MAGNESIUM 2.3 mg/dL (1.8-2.4); PHOSPHORUS 1.8 mg/dL (2.5-4.9); POTASSIUM 3.5 mmol/L (3.5-5.1); TOTAL PROTEIN, SERUM 5.6 g/dL (6.4-8.2)
--- NOTE | 2021-06-28 07:30 | NUR ---
RN CARE TRANSITION OPENING NOTE PT IN BED ASLEEP, EASY TO AROUSE. A/OX 4 VIETNAMESE SPEAKING. NO S/SX OF ACUTE DISTRESS NOTED. NO C/O PAIN. BREATHING IS EVEN AND UNLABORED. ON ROOM AIR, TOLERATING WELL. PT NOTED WITH EXTERNAL WIRELESS FIELD TECHNICIAN-SR 70'S WITH 1ST DEGREE BLOCK AND BBBS. IV ACCESS LAC#18 PATENT AND INTACT, FLUSHES WELL. SAFETY MEASURES IN PLACE WITH BED LOCKED AND LOW POSITION WITH SIDE RAILS UP X 2. CALL LIGHT AND BEDSIDE TABLE WITHIN REACH. WILL CONTINUE TO MONITOR PATIENT THROUGHOUT SHIFT.
[2021-06-28 08:00] VITALS: BP 150/60
[2021-06-28] MEDS: ATORVASTATIN 10 MG TABLET PO SCH (09:12)
[2021-06-28] MEDS: ASPIRIN 81 MG TAB.CHEW PO SCH (09:12)
[2021-06-28] MEDS: METOPROLOL TARTRATE 50 MG TABLET PO SCH ×2 (09:12→16:32)
[2021-06-28] MEDS: LOSARTAN POTASSIUM 50 MG TABLET PO SCH (09:13)
[2021-06-28] MEDS: ENOXAPARIN SODIUM 40 MG/0.4 ML DISP.SYRIN SQ SCH (09:13)
[2021-06-28] MEDS ORDERED: NEUTRA PHOS 1 POWD.PACKET PO ONE (10:00)
[2021-06-28] MEDS ORDERED: ATOR10TA PO (10:19)
[2021-06-28] MEDS ORDERED: ASPI-1169 PO (10:19)
[2021-06-28] MEDS ORDERED: ACET325T53 PO (10:19)
[2021-06-28] MEDS ORDERED: LOSA50TA39 PO (10:19)
[2021-06-28] MEDS ORDERED: CT SWABBABLE VALVE TRANS SET 1 EA INFUS.SET MC ONE (11:11)
[2021-06-28] MEDS ORDERED: NITROGLYCERIN 0.4 MG/TAB BOTTLE ONE (11:11)
[2021-06-28] MEDS ORDERED: IV NS 0.9% 250 ML IV ONE (11:11)
[2021-06-28] MEDS ORDERED: IOHEXOL-350 100 ML VIAL IV ONE (11:11)
[2021-06-28] MEDS ORDERED: METOPROLOL TARTRATE INJ 5 MG/5 ML AMPUL ONE ×3 (11:11→11:50)
[2021-06-28] MEDS: METOPROLOL TARTRATE INJ 5 MG/5 ML AMPUL IVP PRN ×5 (11:30→11:50)
[2021-06-28] MEDS ORDERED: NITROGLYCERIN 0.4 MG/TAB BOTTLE SL ONE (11:30)
--- NOTE | 2021-06-28 12:21 | NUR ---
RN NOTE PT IS CURRENTLY OUT FOR CTCA AT THIS TIME.
--- NOTE | 2021-06-28 14:00 | NUR ---
RN NOTE PT RETURNED TO UNIT AT THIS TIME FROM [facility].
[2021-06-28 16:13] VITALS: BP 131/60
[2021-06-28 16:32] VITALS: BP 131/60
--- NOTE | 2021-06-28 18:02 | NUR ---
FIRE PREVENTION INSPECTORPHLEBOTOMIST ASSOCIATE NOTES PT WAS DISCHARGED WITH STABLE VITAL SIGNS. NO S/SX OF ACUTE DISTRESS. NO SOB. BREATHING IS EVEN AND UNLABORED. DISCHARGE INSTRUCTIONS REVIEWED WITH PATIENT AND FAMILY MEMBERS AT BEDSIDE; VERBALIZED UNDERSTANDING;ALL QUESTIONS ANSWERED. PT GIVEN IMAGES OF SCANS ON CD. IV ACCESS AND ID BAND REMOVED. EXTERNAL TELE MONITOR REMOVED RETURNED TO MONITOR STATION. PT WAS OBSERVED LEAVING THE UNIT AT THIS TIME VIA WHEELCHAIR ACCOMPANIED BY RAJ DUQUE.
== END 2021-06-28 18:00 | disposition home or self-care (01) | DRG 417 ==
LOC: ER 00:56 → EDBD 00:56 → TELE 04:50
PROC: 0FT44ZZ Resection of Gallbladder, Percutaneous Endoscopic Approach (ICD-10-PCS; principal; 2021-06-25)
DX: K80.00 Calculus of gallbladder with acute cholecystitis without obstruction (principal); I21.A1 Myocardial infarction type 2; N17.0 Acute kidney failure with tubular necrosis; K65.9 Peritonitis, unspecified; E87.1 Hypo-osmolality and hyponatremia; R73.9 Hyperglycemia, unspecified; K44.9 Diaphragmatic hernia without obstruction or gangrene; Z20.822 Contact with and (suspected) exposure to COVID-19; I12.9 Hypertensive chronic kidney disease with stage 1 through stage 4 chronic kidney disease, or unspecified chronic kidney disease; N28.1 Cyst of kidney, acquired; N18.9 Chronic kidney disease, unspecified; E78.5 Hyperlipidemia, unspecified; R91.8 Other nonspecific abnormal finding of lung field; R33.9 Retention of urine, unspecified; K82.8 Other specified diseases of gallbladder
CPT/HCPCS: 36415; 71045-TC; 74181-TC; 75574; 76705-TC; 76770-TC; 80048-TC; 80053-TC; 80061-TC; 80076-TC; 82570-TC; 83690-TC; 83735-TC; 84100-TC; 84300-TC; 84439-TC; 84443-TC; 84484-TC; 85025-TC; 85730-TC; 87070-TC; 87075-TC; 87081-TC; 87186-TC; 88304-TC; 93307-TC; 97116-TC; 97530-TC; C9803; G0378; J0360; J1170; J1650; J2250; J2270; J2405; J2543; J2704; J2765; J3010; J3490; J7030; J7040; J7050; J7060; Q9967